=== PATIENT | female | born 1970 | race Asian ===

== ENCOUNTER → 2017-04-21 | Outpatient (CLI) | payer OTHER ==
[~2017-04-21] MED LIST: EXCEDRIN MIGRAI1 TA1 PO; LISINOPRIL PO; PROTONIX PO
--- NOTE | ~2017-04-21 | CR63 ---
[facility] A Service of [facility] & [facility] RADIOLOGY TEXT RESULTS PATIENT: ALISA MIRELES LOCATION: [facility] : [birth year] UNIT #: [id number] AGE: [address]: JESSY Fonseca APRN SEX: F ORDER DR: [id number] [facility] [address] [place], [place] [address] [id number] O MR#: [id number] Acc #: [id number] NAME: ALISA MIRELES : 1970 SEX: F STUDY DATE/TIME: 04/21/2017 11:35 UNIT: [facility] ROOM: STUDY DESCRIPTION: CR Chest 2 View Attending Physician: Jessy Lorenzo Aprn Referring Physician: Jessy Lorenzo Aprn Ordering Physician: Jessy Lorenzo Aprn Primary Care Physician: Jessy Lorenzo Aprn MEDICAL IMAGING REPORT This report is preliminary unless electronic signature is present EXAM Chest PA and lateral HISTORY SUPPLIED Contusion to right frontal chest 16 days ago, continued pain. FINDINGS PA and lateral views of the chest are obtained. The heart size is normal. Vascular pattern is normal. Lungs are clear. There is atherosclerotic calcification of the aorta. Sternum appears intact. No fractures are identified. CONCLUSION Negative chest. Dictated by... Aleks Cesar M.D. THIS IS AN ELECTRONICALLY VERIFIED REPORT Aleks Cesar M.D. at 04/21/2017 4:50 PM SWAPNA/augustus TD: 04/21/2017 16:07 JOB #: [id number] MEDICAL IMAGING REPORT Page 1 of 1 COPY
== END | disposition home or self-care (01) ==
LOC: CRAD 11:17
DX: S20.211D Contusion of right front wall of thorax, subsequent encounter (principal)
CPT/HCPCS: 71020

== ENCOUNTER → 2017-05-14 | Outpatient (CLI) | payer OTHER ==
--- NOTE | ~2017-05-14 | CR63 ---
[facility] A Service of [facility] RADIOLOGY TEXT RESULTS PATIENT: ALISA MIRELES LOCATION: [facility] : [birth year] UNIT #: [id number] AGE: [address]: Conchita Taylor APRN SEX: F ORDER DR: [id number] [facility] [address] [place], [place] [address] [id number] O MR#: [id number] Acc #: [id number] NAME: ALISA MIRELES : 1970 SEX: F STUDY DATE/TIME: 05/14/2017 15:51 UNIT: [facility] ROOM: STUDY DESCRIPTION: CR Chest 2 View Attending Physician: Conchita Taylor A.P.R.N. Referring Physician: Conchita Taylor A.P.R.N. Ordering Physician: Conchita Taylor A.P.R.N. Primary Care Physician: Radha Lorenzo Aprn MEDICAL IMAGING REPORT This report is preliminary unless electronic signature is present EXAM Chest PA and lateral 3 views 05/14/2017 HISTORY Cough, pain with deep inspiration and pain in sternum since 04/11/2017; nonproductive cough, short of breath, and fever. FINDINGS PA and lateral examination of the chest upright shows a good expansion of the parenchyma with a normal distribution of the pulmonary vascularity. There is no indication of congestion, effusion, infiltrate, tumor, or nodular density. The pleural reflections and diaphragmatic contours are normal. The cardiac silhouette and mediastinal anatomy is within normal limits. IMPRESSION Normal chest. Dictated by... Dillon Marcum M.D. THIS IS AN ELECTRONICALLY VERIFIED REPORT Dillon Marcum M.D. at 05/15/2017 5:04 PM Marlon TD: 05/15/2017 12:57 JOB #: [id number] MEDICAL IMAGING REPORT Page 1 of 1 COPY
== END | disposition home or self-care (01) ==
LOC: CRAD 15:32
DX: R05 Cough (principal)
CPT/HCPCS: 71020

== ENCOUNTER → 2017-08-10 | Outpatient (CLI) | payer OTHER ==
--- NOTE | ~2017-08-10 | US5 ---
[facility] A Service of [facility] RADIOLOGY TEXT RESULTS PATIENT: ALISA MIRELES LOCATION: [facility] : [birth year] UNIT #: [id number] AGE: [address]: JESSY Fonseca APRN SEX: F ORDER DR: [id number] [place], [place] [address] [id number] O MR#: [id number] Acc #: [id number] NAME: ALISA MIRELES : 1970 SEX: F STUDY DATE/TIME: 08/10/2017 9:54 UNIT: [facility] ROOM: STUDY DESCRIPTION: US Abdominal Complete Attending Physician: Jessy Lorenzo Aprn Referring Physician: Jessy Lorenzo Aprn Ordering Physician: Jessy Lorenzo Aprn Primary Care Physician: Jessy Lorenzo Aprn MEDICAL IMAGING REPORT This report is preliminary unless electronic signature is present EXAM Abdominal ultrasound complete, 08/10/2017 INDICATIONS 46-year-old female with history of abdominal pain, ovarian cyst, right upper quadrant and right-sided flank pain for 3 months. Diabetes. Medication-controlled hypertension. TECHNIQUE Sonographic imaging of the abdomen was performed. COMPARISON None. FINDINGS The visualized aspects of the pancreas are unremarkable. The liver measures 12 cm long axis. Echotexture increased and mildly coarsened compared to the right kidney suggestive of fatty infiltration but there is no focal liver mass, intrahepatic ductal dilatation or ascites. The gallbladder is sonographically unremarkable. Extrahepatic common bile duct measures 3 mm. The kidneys are nonobstructed with the right measuring 9.5 cm long axis and the left 10.7 cm. No shadowing stone on either side. Segmentally visualized aorta and IVC unremarkable. Spleen measures 8 cm long axis. IMPRESSION 1. Imaging features most characteristic of fatty infiltration of the liver. 2. No evidence of cholelithiasis or ductal dilatation. 3. Otherwise negative. [facility] A Service of [facility] RADIOLOGY TEXT RESULTS PATIENT: ALISA MIRELES LOCATION: [facility] : [birth year] UNIT #: [id number] AGE: [address]: JESSY Fonseca, MIREYA SEX: F ORDER DR: Dictated by... Randy Berry M.D. THIS IS AN ELECTRONICALLY VERIFIED REPORT Randy Berry M.D. at 08/12/2017 3:25 PM BOB/anish TD: 08/11/2017 00:32 JOB #: [id number] MEDICAL IMAGING REPORT Page 1 of 1 COPY
--- NOTE | ~2017-08-10 | US98 ---
[facility] A Service of [facility] RADIOLOGY TEXT RESULTS PATIENT: ALISA MIRELES LOCATION: [facility] : [birth year] UNIT #: [id number] AGE: [address]: JESSY Fonseca APRN SEX: F ORDER DR: [id number] [facility] [address] [place], [place] [address] [id number] O MR#: [id number] Acc #: [id number] NAME: ALISA MIRELES : 1970 SEX: F STUDY DATE/TIME: 08/10/2017 10:14 UNIT: [facility] ROOM: STUDY DESCRIPTION: US Pelvic Non-OB Complete Attending Physician: Jessy Lorenzo Aprn Referring Physician: Jessy Lorenzo Aprn Ordering Physician: Jessy Lorenzo Aprn Primary Care Physician: Jessy Lorenzo Aprn MEDICAL IMAGING REPORT This report is preliminary unless electronic signature is present EXAM Pelvic ultrasound INDICATION Right lower quadrant pain and ovarian pain. Diabetes, medication-controlled hypertension.. TECHNIQUE Sonographic imaging of the pelvis was performed transabdominally and then transvaginally for better evaluation of the adnexa and ovarian structures. We have no comparisons. FINDINGS TRANSABDOMINAL IMAGING: The uterus is seen transabdominally and better characterized transvaginally. It measures about 6.7 cm long axis. Neither ovary identified transabdominally. TRANSVAGINAL IMAGING: Uterus is retroverted. Endometrial stripe is unremarkable. It measures less than a centimeter. Two uterine fibroids are present both of which appear to be intramural. The largest is near the fundus measuring up to 8-9 mm and the second is more central in location measuring about 8 mm. Uterus otherwise unremarkable. There is no adnexal mass, free fluid or drainable fluid collection. The right ovary measures up to 2.3 cm maximum diameter and the left measures up to 1.8 cm. Both ovaries demonstrate good flow and small follicles at the time of the study. IMPRESSION 1. Retroverted uterus without evidence of endometrial thickening. Incidental uterine fibroids. 2. Ovaries appear unremarkable. 3. No free fluid, drainable fluid collection or adnexal mass. [facility] A Service of [facility] RADIOLOGY TEXT RESULTS PATIENT: ALISA MIRELES [id number] [birth year] UNIT #: [id number] AGE: [address]: JESSY Fonseca, [employer] SEX: F ORDER DR: Dictated by... Randy Berry M.D. THIS IS AN ELECTRONICALLY VERIFIED REPORT Randy Berry M.D. at 08/12/2017 3:25 PM BOB/anish TD: 08/11/2017 01:01 JOB #: [id number] MEDICAL IMAGING REPORT Page 1 of 1 COPY
== END | disposition home or self-care (01) ==
LOC: CWCC 09:36
DX: N83.202 Unspecified ovarian cyst, left side (principal); N85.4 Malposition of uterus
CPT/HCPCS: 76700; 76830; 76856